=== PATIENT | male | born 1990 | race Caucasian/White ===

== ENCOUNTER 2017-08-01 17:06 | Emergency (ER) | payer SELFPAY ==
[2017-08-01 17:17] VITALS: BP 140/84
--- NOTE | 2017-08-01 18:11 | Emergency Department Report ---
ED ENT HPI - General Chief complaint: Dental/Oral Stated complaint: PAIN AND SWELLING IN MOUTH Time Seen by Provider: 08/01/17 18:06 Source: patient Mode of arrival: Ambulatory Limitations: No Limitations - History of Present Illness Initial comments: PT c/o Left lower toothache x 3 weeks. PT states for the last 3 days the pain has increased and his gum has swollen. PT states that he has dentist back home but he has no local dentist. PT denies recent dental work. PT states he has wisdom teeth coming in and a hole in one tooth. MD complaint: tooth pain -: Gradual, week(s) (3) Location: tooth # (17) Severity: severe Severity scale (0 -10): 10 Quality: sharp, other (throbbing ) Consistency: constant Improves with: none (no improvement with Tylenol ) Context- Dental: poor dental care Associated Symptoms: gum swelling. denies: fever, pain with swallowing, sore throat - Related Data Previous Rx's Medication Instructions Recorded Last Taken Type Acetaminophen/Codeine [Tylenol #3] 1 tab PO Q6H PRN #12 tab 08/01/17 Unknown Rx Amoxicillin 500 mg PO BID #20 capsule 08/01/17 Unknown Rx Chlorhexidine Mouthwash [Peridex] 15 ml MM BID 7 Days 08/01/17 Unknown Rx Ibuprofen [Motrin] 600 mg PO Q8H PRN #15 tablet 08/01/17 Unknown Rx Allergies Allergy/AdvReac Type Severity Reaction Status Date / Time No Known Allergies Allergy Unverified 08/01/17 17:17 ED Dental HPI - General Chief complaint: Dental/Oral Stated complaint: PAIN AND SWELLING IN MOUTH Time Seen by Provider: 08/01/17 18:06 Source: patient Mode of arrival: Ambulatory Limitations: No Limitations - Related Data Previous Rx's Medication Instructions Recorded Last Taken Type Acetaminophen/Codeine [Tylenol #3] 1 tab PO Q6H PRN #12 tab 08/01/17 Unknown Rx Amoxicillin 500 mg PO BID #20 capsule 08/01/17 Unknown Rx Chlorhexidine Mouthwash [Peridex] 15 ml MM BID 7 Days 08/01/17 Unknown Rx Ibuprofen [Motrin] 600 mg PO Q8H PRN #15 tablet 08/01/17 Unknown Rx Allergies Allergy/AdvReac Type Severity Reaction Status Date / Time No Known Allergies Allergy Unverified 08/01/17 17:17 ED Review of Systems ROS: Stated complaint: PAIN AND SWELLING IN MOUTH Other details as noted in HPI Comment: All other systems reviewed and negative ENT: dental pain Respiratory: denies: cough Gastrointestinal: denies: nausea, vomiting Neurological: headache ED Past Medical Hx - Past Medical History Previous Medical History?: No - Surgical History Past Surgical History?: No - Social History Smoking Status: Never Smoker Substance Use Type: None - Medications Home Medications: Home Medications Medication Instructions Recorded Confirmed Last Taken Type Acetaminophen/Codeine [Tylenol #3] 1 tab PO Q6H PRN #12 tab 08/01/17 Unknown Rx Amoxicillin 500 mg PO BID #20 capsule 08/01/17 Unknown Rx Chlorhexidine Mouthwash [Peridex] 15 ml MM BID 7 Days 08/01/17 Unknown Rx Ibuprofen [Motrin] 600 mg PO Q8H PRN #15 tablet 08/01/17 Unknown Rx ED Physical Exam - General Limitations: No Limitations General appearance: alert, in no apparent distress - Head Head exam: Present: atraumatic, normocephalic, normal inspection - Eye Eye exam: Present: normal appearance, PERRL, EOMI. Absent: conjunctival injection - ENT ENT exam: Present: mucous membranes moist, TM's normal bilaterally, normal external ear exam - Expanded ENT Exam Expanded Mouth exam: Present: normal external inspection. Absent: drooling, trismus Teeth exam: Present: dental tenderness # (tooth 17 appears impacted, no dental abcess noted ), other (plauqe noted to teeth ). Absent: gingival enlargement Throat exam: Positive: normal inspection - Neck Neck exam: Present: normal inspection, full ROM - Respiratory Respiratory exam: Present: normal lung sounds bilaterally. Absent: respiratory distress, chest wall tenderness - Cardiovascular Cardiovascular Exam: Present: regular rate, normal rhythm, normal heart sounds - Extremities Exam Extremities exam: Present: normal inspection, full ROM - Back Exam Back exam: Present: normal inspection, full ROM. Absent: tenderness, CVA tenderness (R), CVA tenderness (L) - Neurological Exam Neurological exam: Present: alert, oriented X3, CN II-XII intact, normal gait - Expanded Neurological Exam Expanded Patient oriented to: Present: person, place, time Speech: Present: fluid speech Best Eye Response ([place]): (4) open spontaneously Best Motor Response ([place]): (6) obeys commands Best Verbal Response ([place]): (5) oriented [place] Total: 15 - Psychiatric Psychiatric exam: Present: normal affect, normal mood - Skin Skin exam: Present: warm, dry, intact, normal color ED Course Vital Signs 08/01/17 17:14 Temperature 98 F Pulse Rate 84 Respiratory 20 Rate Blood Pressure 140/84 O2 Sat by Pulse 99 Oximetry - Reevaluation(s) Reevaluation #1: 08/01/17 18:11 PT aware of abnormal PE findings and dx. PT aware he will need to follow up with PCP for bp recheck and with Dentist. - Pulse Oximetry Interpretation Digit-Finger Initial Pulse Oximetry Readin Actions Taken: none ED Medical Decision Making - Differential Diagnosis toothache, dental abscess Critical Care Time: No Critical care attestation.: If time is entered above; I have spent that time in minutes in the direct care of this critically ill patient, excluding procedure time. ED Disposition Clinical Impression: Toothache, Dental decay Disposition: TO HOME OR SELFCARE Is pt being admited?: No Does the pt Need Aspirin: No Condition: Stable Instructions: Dental Caries (ED), Toothache (ED) Additional Instructions: Follow up with PCP in 1 week for BP recheck Follow up with Dentist in 2-3 days Try to treat your pain with Motrin first and if that does not help, then take Tylenol #3 No driving or alcohol after taking Tylenol #3 for pain Return to the ED if you notice facial swelling, you can not swallow or your have difficulty opening your mouth Prescriptions: Acetaminophen/Codeine [Tylenol #3] 1 tab PO Q6H PRN #12 tab PRN Reason: Pain , Severe (7-10) Amoxicillin 500 mg PO BID #20 capsule Chlorhexidine Mouthwash [Peridex] 15 ml MM BID 7 Days Ibuprofen [Motrin] 600 mg PO Q8H PRN #15 tablet PRN Reason: Pain Referrals: RENETTA EMERSON MD [Referring] - 3-5 Days [facility] [Outside] - 3-5 Days [facility] [Outside] - 3-5 Days [facility] [Outside] - 3-5 Days Forms: Work/School Release Form(ED) Time of Disposition: 18:15
== END 2017-08-01 18:55 | disposition home or self-care (01) ==
LOC: ED 17:06
DX: K02.9 Dental caries, unspecified (principal); R51 Headache
CPT/HCPCS: 99282